=== PATIENT | male | born 1990 | race Caucasian/White ===

== ENCOUNTER 2023-03-16 09:38 | Emergency (ER) | payer SELFPAY ==
[2023-03-16] MEDS ORDERED: Meclizine 25 MG Tab PO ONE (10:53)
== END 2023-03-16 11:10 | disposition home or self-care (01) ==
LOC: JD.ED 09:38
DX: H83.03 Labyrinthitis, bilateral (principal); H61.23 Impacted cerumen, bilateral
CPT/HCPCS: 99283; A9270

== ENCOUNTER 2024-02-19 20:08 | Emergency (ER) | payer BC ==
[2024-02-19] MEDS: Penicillin V Potassium 500 MG Tab PO ONE (21:18)
== END 2024-02-19 21:27 | disposition home or self-care (01) ==
LOC: JD.ED 20:08
DX: J02.0 Streptococcal pharyngitis (principal)
CPT/HCPCS: 99282; A9270; 99283

== ENCOUNTER 2024-10-19 20:25 | Emergency (ER) | payer BC | END 2024-10-19 21:07 | disposition home or self-care (01) | LOC: JD.ED 20:25 | DX: S61.211A Laceration without foreign body of left index finger without damage to nail, initial encounter (principal); Z79.899 Other long term (current) drug therapy; W26.8XXA Contact with other sharp object(s), not elsewhere classified, initial encounter; Y93.89 Activity, other specified; Y99.0 Civilian activity done for income or pay | CPT/HCPCS: 12001; 99282 ==